=== PATIENT | female | born 1995 | race Caucasian/White ===

== ENCOUNTER 2017-01-12 19:07 | Emergency (ER) | payer OTHER ==
[2017-01-12 19:51] LABS: BASO % 0.2 % (0.1-1.2); EOS # 0.2 10_X3_uL (0.0-0.4); EOS % 1.8 % (0.7-5.8); GRAN # 7.1 10_X3_uL (1.6-6.1); GRAN % 70.1 % (34.0-71.1); HEMATOCRIT 38.1 % (34-45); HEMOGLOBIN 13.2 g/dL (11.2-15.7); LYMPH # 2.2 10_X3_uL (1.2-3.7); LYMPH % 21.2 % (19.3-51.7); MEAN CORPUSCULAR HEMOGLOBIN 29.4 pg (27.0-33.0); MEAN CORPUSCULAR HGB CONC 34.6 g/dL (32.0-36.0); MEAN CORPUSCULAR VOLUME 84.9 fL (79-95); MEAN PLATELET VOLUME 9.8 fl (7.5-11.5); MONO # 0.7 10_X3_uL (0.2-0.9); MONO % 6.7 % (4.7-12.5); PLATELET COUNT 351 x10_3/uL (182-369); RED BLOOD COUNT 4.49 x10_6/uL (3.9-5.2); RED CELL DISTRIBUTION WIDTH 12.9 % (11.7-14.4); WHITE BLOOD COUNT 10.1 x10_3/uL (4.0-10.0)
== END 2017-01-12 21:55 | disposition home or self-care (01) ==
LOC: ER 19:07
PROVIDERS: Emergency Medicine
DX: M54.5 Low back pain (principal); K92.1 Melena; Z87.442 Personal history of urinary calculi; Z79.3 Long term (current) use of hormonal contraceptives
CPT/HCPCS: 36415; 81025; 85025; 99283-25